=== PATIENT | male | born 1960 | race Caucasian/White ===

== ENCOUNTER 2020-08-19 09:03 | Outpatient (REF) | payer BC, SELFPAY | END 2020-08-19 09:04 | disposition home or self-care (01) | LOC: HO.WFDLDS 09:03 | PROVIDERS: Visit Provider Internal Medicine | DX: Z20.822 Contact with and (suspected) exposure to COVID-19 (principal) | CPT/HCPCS: 36415; C9803; U0003 ==

== ENCOUNTER 2020-09-09 10:25 | Outpatient (REF) | payer BC, SELFPAY | END 2020-09-09 10:26 | disposition home or self-care (01) | LOC: HO.WFDLDS 10:25 | PROVIDERS: Visit Provider Internal Medicine | DX: Z20.822 Contact with and (suspected) exposure to COVID-19 (principal) | CPT/HCPCS: 36415; C9803; U0003; U0005 ==

== ENCOUNTER 2024-10-23 09:09 | Outpatient (AMB) | payer BC, SELFPAY ==
--- NOTE | 2024-10-23 09:10 | MHC.OFFVIS ---
Intake Visit Reasons: I & D Infected Cyst on left arm Intake Note: This patient presents for possible I&D of infected cyst on the left arm. Pt c/o; on Bactrim, infected cyst left arm. 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 He says that he has had this recurrent abscess for over a year. He says that he had what appeared to be a small pimple like mass on the area but his had scratches a few times. This had become swollen and he had required an I&D a few times already. He says that the swelling keeps coming back so he was referred to me for formal excision. He occasionally notices drainage as well. He is a known diabetic but he says his blood sugars are well controlled. [facility] Medical History (Updated 10/23/24 @ 09:49 by Cuco Riggs MD) Infected epidermoid cyst Parkinsons disease Diabetes mellitus Surgical History (Updated 10/23/24 @ 09:46 by DEBBIE Au) History of colonoscopy Family History (Updated 10/23/24 @ 09:47 by DEBBIE Au) Other Family history unknown Social History Alcohol intake: current Alcohol intake frequency: a few times a week Patient Tobacco Use Status: Never used Tobacco Review of Systems Const Denies chills and Denies fever(s) Card Denies chest pain, Denies dyspnea and Denies dyspnea on exertion Resp Denies cough, Denies dyspnea and Denies dyspnea on exertion GI Denies hematochezia and Denies change in bowel habits Denies hematuria and Denies difficulty urinating Musc Denies back pain and Denies limited range of motion Neuro Denies focal weakness, Denies convulsions and Reports tremor(s) Psych Denies depression and Denies mood swings Physical Exam Const Other: Has some hand tremors General: comfortable and no acute distress Orientation/consciousness: patient oriented x3 Neck Neck: Yes no lymphadenopathy Resp Auscultation: clear to auscultation bilaterally Cardio Rhythm: regular rhythm GI Palpation (GI): Soft to palpation, nontender and no guarding Neuro General: patient oriented x3 Extrem Other: On the left forearm is note of a cystic induration with redness, about 3.1 cm long by about 1 cm wide consistent with an infected epidermal cyst Office Procedures Excision Details: He was placed in reclining position. The area of the cyst on the left forearm was prepped and draped. Lidocaine 1% was used for local anesthesia. I made an elliptical incision on the skin surrounding this cystic induration with a blade 15. This was carried down through the full-thickness of the skin and subcutaneous fat to excise this entire indurated tissue. This was sent as a specimen. The excised area was 3. 2 cm x 1.5 cm. I closed the incision with full-thickness nylon 3-0 simple interrupted sutures. Dressings were applied. The procedure was completed. He tolerated procedure well. There were no immediate complications. There was minimal blood loss. 94452-zwtny/arms/legs 3.1-4cm Procedure code (CPT) selection complete Assessment & Plan Assessment & Plan (1) Infected epidermoid cyst: Code(s): L72.0 - Epidermal cyst; L08.9 - Local infection of the skin and subcutaneous tissue, unspecified Category: Medical Plan: He has had multiple I and D's done. Therefore I explained to him that it may be best to proceed with formal excision of this cyst. I explained the technique of this procedure under local anesthesia. I reviewed the risks, benefits, and alternatives Excision was done in the office under local anesthesia. He tolerated procedure well. There were no immediate complications He was given wound care instructions. He can take Tylenol and ibuprofen or NSAIDs for pain. I will see him in the office for removal sutures in about 2 weeks. Coding Level of Care Code New Pt Level 3 (66245) Diagnoses Infected epidermoid cyst L72.0; L08.9 CPT Codes Trunk/Arms/Legs - CPT: 14214-ttbcm/arms/legs 3.1-4cm ([id number])
== END 2024-10-23 09:51 | disposition home or self-care (01) ==
PROVIDERS: PCP Nurse Practitioner Family; Visit Provider Surgery
DX: L72.0 Epidermal cyst (principal); L08.9 Local infection of the skin and subcutaneous tissue, unspecified; C44.629 Squamous cell carcinoma of skin of left upper limb, including shoulder
CPT/HCPCS: 11604; 99203

== ENCOUNTER 2024-10-23 09:09 | Outpatient (REF) | payer BC, SELFPAY | END 2024-10-23 09:10 | disposition home or self-care (01) | LOC: HO.LNP 09:09 | PROVIDERS: PCP Nurse Practitioner Family; Visit Provider Surgery | DX: C44.629 Squamous cell carcinoma of skin of left upper limb, including shoulder (principal) | CPT/HCPCS: 11604; 88304; 88305 ==

== ENCOUNTER 2024-11-14 09:57 | Outpatient (AMB) | payer BC, SELFPAY ==
--- NOTE | 2024-11-14 09:58 | MHC.OFFVIS ---
Vital Signs 11/14/24 10:11 Height 5 ft 9 in Weight 208 lb 4 oz BMI 30.7 BP 145/82 H Blood Pressure Location Lt brachial Position Sitting Pulse 92 Intake Visit Reasons: 3 wks f/up, post exc infected cyst of the arm Intake Note: Patient is seen in office for 3 wks follow up, post excision of infected cyst of the arm. 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 He tolerated procedure well He says he has healed well and currently denies complaints. [facility] Medical History (Updated 11/14/24 @ 10:20 by Cuco Riggs MD) Squamous cell carcinoma of skin Infected epidermoid cyst Parkinsons disease Diabetes mellitus Surgical History History of colonoscopy Family History Other Family history unknown Social History Alcohol intake: current Alcohol intake frequency: a few times a week Patient Tobacco Use Status: Never used Tobacco Review of Systems Const Denies fever(s) Card Denies chest pain Resp Denies cough GI Denies abdominal pain Physical Exam Vital Signs: Last Vital Signs Pulse 92 11/14/24 10:11 BP 145/82 H 11/14/24 10:11 BMI result Body Mass Index 30.7 Const General: comfortable and no acute distress Resp Effort & Inspection: normal respiratory effort Cardio Rate: regular rate Extrem Other: Excision site on the left forearm is actually well healed, not infected Assessment & Plan Assessment & Plan (1) Squamous cell carcinoma of skin: Code(s): C44.92 - Squamous cell carcinoma of skin, unspecified Category: Medical Plan: Status post excision. His path report actually shows a squamous cell carcinoma completely excised. I explained this finding to him. I told him that he does not require any further surgical intervention. He was advised to keep a close eye on this for any local recurrence His incision is well healed. His sutures were removed. I placed Steri-Strips. He can otherwise follow up on a p.r.n. basis. Coding Level of Care Code Est Pt Level 2 (07328) Diagnoses Squamous cell carcinoma of skin C44.92
[2024-11-14 10:11] VITALS: BP 145/82; PULSE 92; BMI 30.7
== END 2024-11-14 10:26 | disposition home or self-care (01) ==
LOC: HO.HGS 09:58
PROVIDERS: PCP Nurse Practitioner Family; Visit Provider Surgery
DX: C44.92 Squamous cell carcinoma of skin, unspecified (principal)
CPT/HCPCS: 99212

== ENCOUNTER → 2024-11-14 09:57 | Outpatient (BNVA) | payer BC, SELFPAY | PROVIDERS: PCP Nurse Practitioner Family; Visit Provider Surgery | DX: Z13.89 Encounter for screening for other disorder (principal) ==